=== PATIENT | male | born 1945 | race Caucasian/White ===

== ENCOUNTER 2018-09-02 12:04 | Emergency (ER) | payer MEDICARE, BC ==
[2018-09-02 12:12] VITALS: RESP 20; TEMP 97.5
[2018-09-02] MEDS ORDERED: LIDOCAINE HCL 2% MPF 10 ML SOL ONE (12:42)
[2018-09-02] MEDS ORDERED: LIDOCAINE HCL 2% MPF 10 ML SOL INFIL ONE (13:00)
[2018-09-02] MEDS ORDERED: TDAP VACCINE 0.5 ML SUS IM ONE ×2 (13:05→13:06)
[2018-09-02] MEDS ORDERED: BACITRACIN 500 U/GM OIN TOP ONE ×2 (13:56→13:57)
[2018-09-02 14:16] VITALS: BP 187/94; PULSE 52; O2SAT 97
== END 2018-09-02 14:05 | disposition home or self-care (01) | DRG 125 ==
LOC: ED 12:04
DX: S01.111A Laceration without foreign body of right eyelid and periocular area, initial encounter (principal)
CPT/HCPCS: 12013; 70450; 90471; 90715; 99282; 99284; A6402; A9270-GY